=== PATIENT | female | born 1975 | race Caucasian/White ===

== ENCOUNTER → 2016-11-02 | Outpatient (CLI) | payer BC ==
[~2016-11-02] MED LIST: DOCO200C5 PO; DOCU-144 PO; OMEG1CAP74 PO; VALTREX; VIT D3; [UNRECOGNIZED DRUG - REMARK]
[2016-11-05 16:37] LABS: LUTEINIZING HORMONE 6.7 mIU/mL
== END | disposition home or self-care (01) ==
LOC: LAB 06:12
PROVIDERS: ATTEND Obstetrics & Gynecology
DX: Z00.00 Encounter for general adult medical examination without abnormal findings (principal)
CPT/HCPCS: 82670; 83001; 83002; 84146; 84443